=== PATIENT | female | born 1980 | race Caucasian/White ===

== ENCOUNTER → 2020-10-24 | Outpatient (CLI) | payer OTHER ==
[~2020-10-24] MED LIST: BIOTIN1 MG PO; CALCIUM + D3 E1 EACH PO; FAMOTIDINE 20 M20 MG PO; GAVISCON ES CH1 EAC1 PO; MIRENA1 EACH INTRAUTERI; PNV 29-1 TABLE1 EACH PO; VIIBRYD20 MG PO; VITAMIN D325 MC3 PO; ZYRTEC10 M5 PO
== END ==
LOC: LAB 15:02
PROVIDERS: ATTEND Otolaryngology
DX: Z01.812 Encounter for preprocedural laboratory examination (principal); Z20.828 Contact with and (suspected) exposure to other viral communicable diseases

== ENCOUNTER 2020-10-27 06:08 | Day surgery (SDC) | payer OTHER ==
[~2020-10-27] VITALS: Ht 160 cm; Wt 59.0 kg
[2020-10-27 07:47] VITALS: BP 95/48
--- NOTE | 2020-10-27 08:10 | H ---
[facility] [place] [address] HISTORY AND PHYSICAL Name: MATTHIAS HAMM Room #: REG [facility].#: [id number] Admission: 10/27/20 Attend Phys: Law Hyatt MD Discharge: Date of : 80 Report #: [id number] THIS REPORT FOR: cc: David Bailey MD, Neal A. MD [place],Law Fernandez MD ~ CC: Law Bailey DATE OF SERVICE: 10/27/2020 Surgery on 10/27/2020. CHIEF COMPLAINT: Oropharyngeal lesion. HISTORY OF PRESENT ILLNESS: The patient is a 40-year-old female who was seen back earlier this year with continued complaints of posterior throat irritation and a lesion in the oropharynx. At that time, it was noted that she had a round 2 cm right posterior wall pharyngeal lesions along with lateral gutter inflammation. Despite the use of reflux medications and antihistamines, this has not changed over the period and at this time she is in agreement to obtain tissue diagnosis of this area. Plan will be for a biopsy of the oropharyngeal lesion under anesthesia. ALLERGIES TO MEDICATION: PENICILLIN AND ADHESIVES. MEDICATIONS ON ADMISSION: Stelazine nasal spray, calcium, citalopram 20 mg a day, vitamins, Viibryd 20 mg tablets daily, Zyrtec and vitamin D. PAST MEDICAL AND SURGICAL HISTORY: Notable for previous adenotonsillectomy. FAMILY HISTORY: Not significant for any relatable conditions. REVIEW OF SYSTEMS: Otherwise, negative for GI, , cardiovascular or pulmonary issues. PHYSICAL EXAMINATION: VITAL SIGNS: Height of 5 feet 3 inches, weight 160 pounds, normotensive blood pressure 114/67. HEENT: Specifically the oral cavity reveals surgical absence of the tonsils. There is around 2 cm right pharyngeal wall lesion around the posterior wall along with bilateral left greater than right pharyngeal gutter inflammation. NECK: Normal to palpation. No cervical lymph nodes palpated. CHEST: Clear. CARDIOVASCULAR: Regular rate and rhythm. [facility] [employer] [place] [address] HISTORY AND PHYSICAL Name: HAMMMATTHIAS Room #: [facility].#: [id number] Admission: 10/27/20 Attend Phys: Law Hyatt MD Discharge: Date of : 80 Report #: [id number] ASSESSMENT: History of persistent oropharyngeal lesion. PLAN: Will be for a biopsy of the area. <ELECTRONICALLY SIGNED> By: Law Hyatt MD 10/27/20 0810 1609 1633 Law Hyatt MD /nt
[2020-10-27 08:16] VITALS: BP 95/48
--- NOTE | 2020-10-27 10:45 | O ---
[facility] [place] [address] OPERATIVE REPORT Name: MATTHIAS HAMM Room #: DEP [facility].#: [id number] Admission: 10/27/20 Attend Phys: Law Hyatt MD Discharge: 10/27/20 Date of : 80 Report #: [id number] THIS REPORT FOR: cc: David Bailey MD, Neal A. MD [place], Jay A. MD ~ CC: Law Bailey DATE OF SERVICE: 10/27/2020 PREOPERATIVE DIAGNOSIS: Right posterior oropharyngeal lesion. POSTOPERATIVE DIAGNOSIS: Path pending. PROCEDURES: Excision of right posterior oropharyngeal mass. SURGEON: Law Hyatt M.D. ANESTHESIA: General endotracheal. INDICATIONS AND FINDINGS: There is a firm 1 cm mass on the right posterior oropharyngeal wall medial to the tonsillar fossa. TECHNIQUE: After obtaining consent, she was brought to the operating suite, appropriate timeout was performed. General oral endotracheal anesthesia was obtained. The bed was turned 90 degrees. She was placed in a slight head up position with a shoulder roll. Madonna head drape was applied. A large McIvor mouth gag was used to open the oral cavity and suspended from the Masters stand. The lesion was easily visualized. A red rubber catheter was placed through the right naris, brought out of the oral cavity to suspend the soft palate and provide better visualization of the mass. A 1 mL of 1% Xylocaine, 1:100,000 epinephrine was injected submucosally around the mass. The mass was grasped gingerly with tooth forceps and using electrocautery on a setting of 15 coagulation, a lateral incision was made around the mass. I was then able to bluntly dissect this away from the submucosa and muscularis layer of the constrictor muscle, cauterizing small bleeders as it was removed with the electrocautery. Specimen was removed in toto. The area was then hemostatically made stable with the use of electrocautery. Upon removal, the oropharynx was irrigated. There was no bleeding noted. Positive pressure ventilation applied and it was hemostatically dry. She was turned back over to Anesthesia, where she was lightened, extubated and taken to recovery room in stable condition. [address] [address] OPERATIVE REPORT Name: MATTHIAS HAMM Melissa Room #: DEP [facility].#: [id number] Admission: 10/27/20 Attend Phys: Law Hyatt MD Discharge: 10/27/20 Date of : 80 Report #: [id number] ESTIMATED BLOOD LOSS: Minimal. <ELECTRONICALLY SIGNED> By: Law Hyatt MD 10/27/20 1045 0805 0827 Law Hyatt MD /nt
--- NOTE | 2020-10-31 17:07 | PATH ---
[facility] [address] [place] [address] PATHOLOGY RPT PROCEDURE Name: JADE HAMM Melissa Room #: DEP [facility].#: [id number] Admission: 10/27/20 Date of : 80 Discharge: 10/27/20 Report #: [id number] Path Case #: [id number] [facility] Accession Number: [id number] . 01 Material submitted: . oropharynx - OROPHARYNX LESION . 01 Clinical history: . OROPHARYNGEAL LESION, OTHER DISEASE OF PHARYNX . 02 Diagnosis: Oral mucosa, oropharyngeal lesion, biopsy: - Reactive lymphoid hyperplasia underneath squamous epithelium compatible with a tonsil. - Overlying squamous epithelium showing cautery and reactive changes along with acute inflammation. (IUV:pit 10/31/2020) . QTP 10/31/2020 1414 Local . 02 Electronically signed: . Soraida Cerda MD, Pathologist NPI- [id number] . 01 Gross description: . The specimen is received in formalin, labeled "Jade Hamm, oropharynx lesion". Received is a segment of light sanabria tissue measuring 0.6 cm in maximum dimensions. The specimen is submitted entirely in cassette A1. (CAA; 10/30/2020) QAC/QAC 10/30/2020 1105 Local . 02 Pathologist provided ICD-10: J35.1, J02.9 . 02 CPT . 492228 Specimen Comment: A courtesy copy of this report has been sent to [phone], [phone] Specimen Comment: [phone] Specimen Comment: Report sent to / DR WINTER Performed at: [address] [id number] MD Raman Marie MD Phone: [phone] Performed at: [address] [id number] [address] [address] PATHOLOGY RPT PROCEDURE Name: JADE HAMM Room #: [facility] [facility] [facility]#: [id number] Admission: 10/27/20 Date of : 80 Discharge: 10/27/20 Report #: [id number] Path Case #: [id number] MD Soraida Cerda MD Phone: [phone]
== END 2020-10-27 08:50 | disposition home or self-care (01) ==
LOC: OR 06:08 → TBA 08:26 → OR 08:50
PROVIDERS: ATTEND Otolaryngology
DX: J02.9 Acute pharyngitis, unspecified (principal); J35.1 Hypertrophy of tonsils; J39.2 Other diseases of pharynx; Z98.890 Other specified postprocedural states; Z79.899 Other long term (current) drug therapy; Z88.0 Allergy status to penicillin; Z88.8 Allergy status to other drugs, medicaments and biological substances
CPT/HCPCS: 50010; 50101; 62110; 62900; 70005